=== PATIENT | female | born 1985 | race Caucasian/White ===

== ENCOUNTER 2017-10-23 20:14 | Emergency (ER) | payer OTHER ==
[~2017-10-23] VITALS: Ht 167.6 cm; Wt 54.4 kg
[2017-10-23] MEDS ORDERED: KEFLEX500 M1 PO (20:49)
[2017-10-23 20:59] VITALS: BP 107/64
== END 2017-10-23 21:00 | disposition home or self-care (01) ==
LOC: M.ERS 20:14
DX: S61.210A Laceration without foreign body of right index finger without damage to nail, initial encounter (principal); W26.0XXA Contact with knife, initial encounter; Y93.89 Activity, other specified; Y92.89 Other specified places as the place of occurrence of the external cause; Y99.8 Other external cause status